=== PATIENT | female | born 1985 | race Caucasian/White ===

== ENCOUNTER 2016-12-10 14:37 | Emergency (ER) | payer OTHER ==
[~2016-12-10] VITALS: Ht 157.5 cm; Wt 68.0 kg
--- NOTE | 2016-12-10 14:37 | NUR ---
Patient was BIBA and taken to bed 04 via gurney per EMS.
[2016-12-10 14:38] VITALS: BP 161/93
--- NOTE | 2016-12-10 14:40 | NUR ---
30/F BIBA FROM FIELD FOR ANXIETY WHILE DRIVING, AWAKE AND ALERT ON ARRIVAL. HX OF ANXIETY.PT STATED HAD AN ARGUMENT WITH SON IN THIS MORNING.DENIES N/V/D; SKIN IS PINK/WARM/DRY; AAOX4 WITH EVEN AND STEADY GAIT; LUNGS CLEAR BL; HR EVEN AND REGULAR; PT DENIES ANY FEVER, CP, SOB AT THIS TIME; PATIENT STATES PAIN OF 0/10 AT THIS TIME; VSS; PATIENT POSITIONED FOR COMFORT; HOB ELEVATED; BEDRAILS UP X2; BED DOWN. ER MD MADE AWARE OF PT STATUS.
--- NOTE | 2016-12-10 15:41 | NUR ---
Dr. Anton evaluating patient at bedside.
[2016-12-10 16:14] VITALS: BP 131/89
--- NOTE | 2016-12-10 16:14 | NUR ---
Patient discharged with v/s stable. Written and verbal after care instructions given and explained. Patient alert, oriented and verbalized understanding of instructions. Ambulatory with steady gait. All questions addressed prior to discharge. ID band removed. Patient advised to follow up with PMD. Rx of LORAZEPAM given. Patient educated on indication of medication including possible reaction and side effects. Opportunity to ask questions provided and answered.
== END 2016-12-10 16:14 | disposition home or self-care (01) ==
LOC: MED 14:38
DX: F41.9 Anxiety disorder, unspecified (principal)